=== PATIENT | male | born 1985 | race Two or more races ===

== ENCOUNTER 2021-05-02 04:19 | Emergency (ER) | payer SELFPAY ==
[~2021-05-02] VITALS: Ht 177.8 cm; Wt 114.0 kg
[2021-05-02 04:48] VITALS: BP 122/77
[2021-05-02] MEDS ORDERED: KETOROLAC 60MG/2ML VIAL IM ONE (05:30)
[2021-05-02] MEDS ORDERED: METHOCARBAMOL 500MG TABLET PO ONE (05:30)
[2021-05-02] MEDS ORDERED: NAPR-681 MT (06:03)
[2021-05-02] MEDS ORDERED: METH500T6 MT (06:03)
== END 2021-05-02 06:37 | disposition home or self-care (01) ==
LOC: ER 04:19
DX: S39.012A Strain of muscle, fascia and tendon of lower back, initial encounter (principal); V49.49XA Driver injured in collision with other motor vehicles in traffic accident, initial encounter; Y93.89 Activity, other specified; Y92.488 Other paved roadways as the place of occurrence of the external cause
CPT/HCPCS: 99283; J1885